=== PATIENT | female | born 1955 | race Two or more races ===

== ENCOUNTER 2020-08-29 09:49 | Emergency (ER) | payer OTHER ==
[~2020-08-29] VITALS: Ht 160 cm; Wt 81.6 kg
[2020-08-29] MEDS ORDERED: CLEOCIN HCL300 MG (10:50)
[2020-08-29] MEDS ORDERED: NABUMETONE500 MG (10:51)
[2020-08-29] MEDS ORDERED: KETO10TA2 PO (13:48)
[2020-08-29] MEDS ORDERED: MEDROLPACK PO (13:48)
== END 2020-08-29 14:07 | disposition home or self-care (01) ==
LOC: ER 09:49
DX: M25.541 Pain in joints of right hand (principal)

== ENCOUNTER 2023-06-06 12:06 | Emergency (ER) | payer OTHER ==
[~2023-06-06] VITALS: Ht 157.5 cm; Wt 77.1 kg
[~2023-06-06 12:06] MED LIST: CLEOCIN HCL300 MG; KETO10TA2 PO; MEDROLPACK PO; NABUMETONE500 MG
[2023-06-06] MEDS ORDERED: LISINOPRIL10 MG PO (12:29)
[2023-06-06] MEDS ORDERED: SIMVASTATIN40 MG PO (12:29)
[2023-06-06] MEDS ORDERED: GLUMETZA500 MG (12:29)
[2023-06-06] MEDS ORDERED: TRIAMCINOLONE ACETONIDE 40 MG/ML VIAL IM STA (14:32)
== END 2023-06-06 14:47 | disposition home or self-care (01) ==
LOC: ER 12:06
DX: M19.90 Unspecified osteoarthritis, unspecified site (principal); I10 Essential (primary) hypertension; E11.9 Type 2 diabetes mellitus without complications; Z79.84 Long term (current) use of oral hypoglycemic drugs
CPT/HCPCS: 96372; 99282; J3301

== ENCOUNTER 2023-11-13 15:58 | Outpatient (CLI) | payer OTHER ==
[~2023-11-13 15:58] MED LIST changes: +GLUMETZA500 MG; +LISINOPRIL10 MG PO; +SIMVASTATIN40 MG PO
== END 2023-11-13 16:01 | disposition home or self-care (01) ==
LOC: RAD 15:58
PROVIDERS: ATTEND Specialist
DX: M17.0 Bilateral primary osteoarthritis of knee (principal)

== ENCOUNTER 2024-04-09 10:23 | Outpatient (CLI) | payer OTHER | END 2024-04-09 10:31 | disposition home or self-care (01) | LOC: SONOGRAMA 10:23 | PROVIDERS: ATTEND Orthopaedic Surgery | DX: M75.42 Impingement syndrome of left shoulder (principal) ==

== ENCOUNTER 2024-05-11 13:41 | Outpatient (CLI) | payer OTHER | END 2024-05-11 13:42 | disposition home or self-care (01) | LOC: LAB 13:41 | DX: J06.9 Acute upper respiratory infection, unspecified (principal); Z20.828 Contact with and (suspected) exposure to other viral communicable diseases; Z20.822 Contact with and (suspected) exposure to COVID-19; R00.2 Palpitations; R05.9 Cough, unspecified ==

== ENCOUNTER 2025-02-01 07:50 | Outpatient (CLI) | payer OTHER | END 2025-02-01 07:52 | disposition home or self-care (01) | LOC: MAMO-SONO 07:50 | PROVIDERS: ATTEND General Practice | DX: N60.11 Diffuse cystic mastopathy of right breast (principal); N60.12 Diffuse cystic mastopathy of left breast; N64.0 Fissure and fistula of nipple; Z12.31 Encounter for screening mammogram for malignant neoplasm of breast ==